=== PATIENT | male | born 1995 | race Caucasian/White ===

== ENCOUNTER 2018-03-06 22:05 | Emergency (ER) | payer MEDICAID ==
[~2018-03-06] VITALS: Ht 175.3 cm; Wt 111.0 kg
[2018-03-07] MEDS ORDERED: IBUPROFEN 800MG TABLET PO ONE (06:30)
[2018-03-07 08:16] VITALS: BP 121/76
== END 2018-03-07 08:39 | disposition home or self-care (01) ==
LOC: ER 22:05
DX: S83.91XA Sprain of unspecified site of right knee, initial encounter (principal); W17.89XA Other fall from one level to another, initial encounter; Y93.89 Activity, other specified; Y92.481 Parking lot as the place of occurrence of the external cause; F17.210 Nicotine dependence, cigarettes, uncomplicated; F12.90 Cannabis use, unspecified, uncomplicated; F10.10 Alcohol abuse, uncomplicated; Y90.9 Presence of alcohol in blood, level not specified; R03.0 Elevated blood-pressure reading, without diagnosis of hypertension
CPT/HCPCS: 73562; 99284; L1830